=== PATIENT | female | born 1955 | race Caucasian/White ===

== ENCOUNTER 2016-05-21 10:58 | Emergency (ER) | payer BC ==
[~2016-05-21] VITALS: Ht 152.4 cm; Wt 74.5 kg
[~2016-05-21 10:58] MED LIST: ASPI81TA11 PO; ATOR20TA15 PO; AUGM875T PO; CALC600T25 PO; FISHCAP4 PO; FLUT50SP EACH NARE; I-CAPS; LEVE500T8 PO; NIFE15TA PO; OFLO1SOL RIGHT EAR; VITA500C13 PO
[2016-05-21 11:07] VITALS: PULSE 112; RESP 16; TEMP 99.6; O2SAT 97
--- NOTE | 2016-05-21 11:28 | PD ---
HPI Chief Complaint: Cold / Flu Symptoms Time Seen by Provider: 11:27 Travel History International Travel<30 days: No Contact w/Intl Traveler<30days: No Traveled to known affect area: No History of Present Illness HPI 61-year-old female presents to the emergency Department with complaint of cough and nasal congestion since of last week. Reports not being able to sleep last 4 nights secondary to not being able to breathe out of her nose and having sleep apnea. She denies chest pain, shortness of breath, difficulty breathing. Reports nasal congestion and facial pressure that is making her have to breathe out of her mouth. Reports bilateral ear pressure. Patient reports having right otitis media with perforation around Thanksgiving and was put on azithromycin by her primary care provider. She was seen here in mid April with continued ear pain and was treated with Augmentin for right otitis media and perforation. This past she started with nasal congestion and not feeling well again. She denies fever but says that she has been feeling warm. Denies chills. Denies nausea, vomiting. Denies sore throat. Reports cough is worse at night. Denies hemoptysis. Has tried Advil, Mucinex, Tussin CF with no relief of symptoms. History of hypertension, left breast cancer, hyperlipidemia, and sleep apnea. Is in the process of switching primary care providers. No other modifying factors or associated signs and symptoms. PFSH Past Medical History Blood Disorders: No Heart Rhythm Problems: Yes (TACHYCARDIA ) Cancer: Yes (L BREAST CANCER 15 YEARS AGO) Cardiac Catheterization: No Cardiovascular Problems: Yes High Cholesterol: Yes Chemotherapy: Yes Chest Pain: No Congestive Heart Failure: No Diabetes: No Diminished Hearing: No Endocrine: No Genitourinary: No Hypertension: Yes Immune Disorder: No Musculoskeletal: No Neurologic: Yes Psychiatric: No Reproductive: No Respiratory: No Immunizations Current: No Myocardial Infarction: No Radiation Therapy: Yes Seizures: Yes Sleep Apnea: Yes Thyroid Disease: No ?: Not Menopausal: Yes Past Surgical History Abdominal Surgery: Yes ("TUMMY TUCK") Appendectomy: Yes Coronary Artery Bypass Graft: No Neurologic Surgery: Yes (BRAIN SURGERY 04/04/94 FOR EPILEPSY) Other Surgery: Yes (RECONSTRUCTION LEFT BREAST CA) Social History Alcohol Use: No Tobacco Use: No Substance Use: No Allergies-Medications (Allergen,Severity, Reaction): Coded Allergies: Clindamycin (Verified Adverse Reaction, Severe, NAUSEA, 05/21/16) Codeine (Verified Adverse Reaction, Severe, NAUSEA, 05/21/16) Erythromycin (Verified Adverse Reaction, Severe, NAUSEA , 05/21/16) Hydrocodone (Verified Adverse Reaction, Severe, NAUSEA, 05/21/16) Keflex (Verified Adverse Reaction, Severe, NAUSEA, 05/21/16) Naproxen (Verified Adverse Reaction, Severe, NAUSEA, 05/21/16) Oxycodone (Verified Adverse Reaction, Severe, NAUSEA, 05/21/16) Reported Meds & Prescriptions Reported Meds & Active Scripts Active Doxycycline Hyclate 100 Mg Cap 100 Mg PO BID 10 Days Reported Fluticasone Nasal [place] 50 Mcg/Act Naspr 50 Mcg EACH NARE BID 50 mcg/spray Levetiracetam 500 Mg Tab 1,000 Mg PO DAILY Atorvastatin (Atorvastatin Calcium) 20 Mg Tab 20 Mg PO HS Nifedical XL (Nifedipine) 60 Mg Tab 60 Mg PO DAILY Calcium (Calcium Carbonate) 600 Mg Tab 1 Tab PO DAILY Aspirin EC (Aspirin) 81 Mg Tabdr 81 Mg PO DAILY Vitamin C (Bioflavonoid Products) 1 Chew 1 Tab PO DAILY [I-Caps] Fish Oil + D3 (Fish Oil-Cholecalciferol) 1,200-1,000 Mg-Unit Cap 1 Cap PO DAILY Review of Systems Except as stated in HPI: all other systems reviewed are Neg Physical Exam Narrative GENERAL: Well-nourished, well-developed female patient, in no acute distress; nontoxic appearing SKIN: Warm and dry. No rash. HEAD: Atraumatic. Normocephalic. Frontal and maxillary sinus tenderness on palpation. EYES: Pupils equal and round at 3 mm with brisk reaction. No scleral icterus. No injection or drainage. PERRLA. ENT: Mucosa pink and moist. Oropharynx without erythema, exudates, tonsillar edema.. No uvular edema. No uvular, palatal, or tonsillar deviation. Airway patent. EARS: Bilateral pinnae and external canals appear within normal limits. Bilateral tympanic membranes without erythema, dullness or perforation. NECK: Trachea midline. No lymphadenopathy. CARDIOVASCULAR: Regular rate and rhythm. No murmur appreciated. RESPIRATORY: No accessory muscle use. Clear to auscultation. Breath sounds equal bilaterally. GASTROINTESTINAL: Abdomen soft, non-tender, nondistended. Hepatic and splenic margins not palpable. Bowel sounds are active 4 quadrants. MUSCULOSKELETAL: No obvious deformities. No clubbing. No cyanosis. No edema. NEUROLOGICAL: Awake and alert. Oriented 3. No obvious cranial nerve deficits. Motor grossly within normal limits. Normal speech. Moves all extremities. 5/5 strength to all extremities. PSYCHIATRIC: Appropriate mood and affect; insight and judgment normal. Data Data Last Documented VS Vital Signs Date Time Temp Pulse Resp B/P Pulse Ox O2 Delivery O2 Flow Rate FiO2 05/21/16 11:40 98 16 159/74 96 Room Air 05/21/16 11:07 99.6 Orders Chest, Single Ap (05/21/16 11:28) Influenzae A/B Antigen (05/21/16 11:42) MDM Medical Decision Making Medical Screen Exam Complete: Yes Emergency Medical Condition: Yes Medical Record Reviewed: Yes Differential Diagnosis Sinusitis, upper respiratory infection, bronchitis Narrative Course 61-year-old female with cough and congestion since ; physical exam and history of present illness consistent with sinusitis. She was previously treated with azithromycin and Augmentin for right ear otitis media with perforation within the last 3 weeks to one and a half months. Patient took at all prior to arrival to ER. Patient has low-grade fever of 99.6 in the ER. Reports feeling warm at home but does not have a MAXIMUM TEMPERATURE. Patient is nontoxic appearing. Her lungs are clear and equal bilaterally. She is in no acute distress and without retractions or tachypnea. Oxygen saturation is 96 % on room air. Heart rate recheck on physical exam is approximately 90 bpm. Chest x-ray ordered. Influenza ordered. 1220: Influenza negative. 1358: Chest x-ray concludes No acute intrathoracic disease; 2. Old appearing compression of T9. Doxycycline and Nasonex nasal spray prescribed for home. Patient has appointment with ENT follow-up for her ears this week. Patient is medically cleared and stable for discharge. Discussed reasons to return to the emergency department. Instructed patient to follow up with primary care provider. Patient agrees with treatment plan. The patients vital signs are stable and the patient is stable for outpatient follow-up and treatment. Patient discharged home, stable and in no acute distress. Diagnosis Primary Impression: Sinusitis Qualified Code: J01.90 - Acute sinusitis, recurrence not specified, unspecified location Referrals: Primary Care Physician Patient Instructions: General Instructions, Sinusitis (ED) Departure Forms: Tests/Procedures, Work Release Enter return to work date: May 24, 2016 Additional Instructions: Antibiotics as prescribed in complete full course Ibuprofen or Tylenol as directed and as needed to reduce fever Get plenty of sleep/rest Drink plenty of fluids to prevent dehydration Byron diet to encourage nutrition such as crackers, fruit, applesauce, toast, soup etc. Use an air humidifier/turn off ceiling fans Follow-up with your primary care provider within 1-2 days Return immediately to the emergency department with worsening of symptoms Med/Other Pt SpecificInfo: Prescription(s) given Scripts Mometasone Nasal Fre[place] (Nasonex Nasal Fre[place]att)50 Mcg/Act Naspr2 [place] EACH NARE DAILY PRN (NASAL CONGESTION) #1 BOTTLE Ref 0 Prov:Nicolette Nettles 05/21/16 Doxycycline Hyclate 100 Mg [id number] Mg PO BID 10 Days Ref 0 Prov:Nicolette Nettles 05/21/16 Disposition: 01 DISCHARGE HOME Condition: Stable Nicolette Nettles May 21, 2016 11:28
[2016-05-21] MEDS ORDERED: AUGM875T PO (11:30)
[2016-05-21] MEDS ORDERED: DOXY100C PO ×2 (11:35→13:59)
[2016-05-21 11:40] VITALS: BP 159/74; PULSE 98; RESP 16; O2SAT 96
--- NOTE | 2016-05-21 13:54 | RADHPO ---
EXAM DATE/TIME: 05/21/2016 12:02 [facility] COMPARISON: CHEST SINGLE AP, May 04, 2010, 8:20. INDICATIONS : Cough and congestion. MEDICAL HISTORY : Carcinoma, breast. SURGICAL HISTORY : Left breast surgery. ENCOUNTER: Initial ACUITY: 4 - 6 days PAIN SCORE: 0/10 LOCATION: Bilateral chest FINDINGS: A single view of the chest demonstrates the lungs to be symmetrically aerated without evidence of mas s, infiltrate or effusion. The cardiomediastinal contours are unremarkable. There are surgical clips in the left axillary area. There appears to be an old compression fracture of T9. No significant joan nges compared to the prior chest x-ray. CONCLUSION: 1. No acute intrathoracic disease. 2. Old appearing compression of T9. Alejo Ramirez MD on May 21, 2016 at 13:52 Board Certified Radiologist. This report was verified electronically.
[2016-05-21] MEDS ORDERED: MOME17I EACH NARE (14:01)
== END 2016-05-21 14:30 | disposition home or self-care (01) ==
LOC: PHEFT 10:58
DX: J01.90 Acute sinusitis, unspecified (principal); R05 Cough; I10 Essential (primary) hypertension; E78.5 Hyperlipidemia, unspecified; G47.30 Sleep apnea, unspecified; Z85.3 Personal history of malignant neoplasm of breast; Z86.79 Personal history of other diseases of the circulatory system; Z86.69 Personal history of other diseases of the nervous system and sense organs
CPT/HCPCS: 71010; 87804; 99283